=== PATIENT | female | born 1970 | race Caucasian/White ===

== ENCOUNTER → 2016-05-26 | Outpatient (CLI) | payer OTHER ==
--- NOTE | 2016-05-26 13:42 | MA ---
Screening Digital Mammogram with iCAD Clinical Indications: Routine screening. Technique: Standard cephalocaudal and mediolateral oblique projections were obtained. This examinat ion was processed by the iCAD computer aided detection system. Comparison: 2014, 2012 Breast density: 2; 25 to 50% Findings: CAD was reviewed. No suspicious findings are identified. No interval development of new suspicious calcification, mass, or architectural distortion. Impression: Benign. BI-RADS 2. Recommendation: Routine screening is recommended in one year. [facility] will send a result letter to the patient. Negative mammography should not preclude additional workup of a clinically suspicious finding. The patient's information is entered into a reminder system with a target due date for her next mammo gram.
== END ==
LOC: CIMAGING 09:57
DX: Z12.31 Encounter for screening mammogram for malignant neoplasm of breast (principal)
CPT/HCPCS: G0202

== ENCOUNTER → 2016-12-20 | Outpatient (CLI) | payer OTHER | LOC: CIMAGING 12:02 | PROVIDERS: ATTEND Physician Assistant Medical | DX: N63 Unspecified lump in breast (principal) | CPT/HCPCS: 76641-PO; G0206 ==

== ENCOUNTER → 2018-11-03 | Day surgery (SDC) | payer OTHER | LOC: FSGY 17:42 ==